=== PATIENT | female | born 1995 | race Caucasian/White ===

== ENCOUNTER → 2017-02-25 | Outpatient (CLI) | payer BC ==
[2017-02-25 10:05] LABS: CREATININE, serum 0.75 mg/dL (0.52-1.25); POTASSIUM 4.3 mmol/L (3.4-5.0)
[2017-02-25 10:11] LABS: BASO # 0.1 (0.0-0.2); BASO % 0.6 % (0.0-2.0); EOS # 0.1 (0.0-0.7); EOS % 0.6 % (0-4.0); GRAN % 81.8 % (42.2-75.2); HEMATOCRIT 50.6 % (37.0-47.0); HEMOGLOBIN 17.3 g/dl (12.5-16.0); LYMPH # 0.9 (1.2-3.4); LYMPH % 9.7 % (20.0-51.0); MEAN CELL VOLUME 95 fl (80.0-100.0); MEAN CORPUSCULAR HEMOGLOBIN 33 pg (27.0-31.0); MEAN CORPUSCULAR HGB CONC 34 g/dl (33.0-37.0); MEAN PLATELET VOLUME 10.6 fl (7.4-10.4); MONO # 0.7 (0.1-0.6); PLATELET COUNT 230 K/mm3 (130-400); RED BLOOD COUNT 5.33 M/mm3 (4.10-5.30); REDCELL DISTRIBUTION WIDTH-CV 12.3 % (11.5-14.5)
[2017-02-25 10:12] LABS: CALCIUM 9.9 mg/dL (8.4-10.2)
== END ==
LOC: COL.LAB 09:24
PROVIDERS: Physician Assistant
DX: R31.9 Hematuria, unspecified (principal)

== ENCOUNTER → 2019-11-12 | Outpatient (CLI) | payer OTHER | LOC: COL.VAS 14:11 | DX: Q24.9 Congenital malformation of heart, unspecified (principal) ==